=== PATIENT | male | born 1975 | race African-American/Black ===

== ENCOUNTER 2017-04-05 07:18 | Emergency (ER) | payer BC, OTHER ==
[~2017-04-05] VITALS: Ht 180.3 cm; Wt 104.3 kg
[2017-04-05] MEDS ORDERED: SKELAXIN 800 M800 M1 PO (07:29)
[2017-04-05] MEDS ORDERED: NORCO 5-325 TA1 EACH PO (08:05)
[2017-04-05 08:26] VITALS: BP 145/104
== END 2017-04-05 08:27 | disposition home or self-care (01) ==
LOC: ER 07:18
DX: S46.912A Strain of unspecified muscle, fascia and tendon at shoulder and upper arm level, left arm, initial encounter (principal); V89.2XXA Person injured in unspecified motor-vehicle accident, traffic, initial encounter; Y93.I9 Activity, other involving external motion; Y92.89 Other specified places as the place of occurrence of the external cause; Y99.8 Other external cause status

== ENCOUNTER 2018-04-05 09:01 | Emergency (ER) | payer BC, OTHER ==
[~2018-04-05] VITALS: Ht 180.3 cm; Wt 108.9 kg
[~2018-04-05 09:01] MED LIST: NORCO 5-325 TA1 EACH PO; SKELAXIN 800 M800 M1 PO
[2018-04-05 09:13] VITALS: BP 146/96
[2018-04-05] MEDS ORDERED: NORCO 5-325 TA1 EACH PO (10:01)
[2018-04-05] MEDS ORDERED: PREDNISONE50 MG PO (10:01)
== END 2018-04-05 10:12 | disposition home or self-care (01) ==
LOC: ER 09:01
DX: S43.402A Unspecified sprain of left shoulder joint, initial encounter (principal); M54.12 Radiculopathy, cervical region; V89.2XXA Person injured in unspecified motor-vehicle accident, traffic, initial encounter; Y93.89 Activity, other specified; Y92.89 Other specified places as the place of occurrence of the external cause; Y99.8 Other external cause status